=== PATIENT | female | born 1995 | race Caucasian/White ===

== ENCOUNTER 2019-11-22 00:39 | Emergency (ER) | payer MEDICAID, OTHER ==
[~2019-11-22] VITALS: Ht 160 cm; Wt 122.5 kg
--- NOTE | 2019-11-22 00:50 | NUR ---
PT CAME TO THE ED C/O FLU LIKE SYMPTOMS, COUGH, TESTED COVID X3 NEGATIVE. +DIARRHEA, +H/A. PT AAOX4, VSS, RESPIRATIONS EVEN AND UNLABORED ON RA W/ NAD NOTED. PT CONNECTED TO THE MONITOR AND POX
[2019-11-22] MEDS ORDERED: ACETAMINOPHEN ES 500 MG TABLET ONE (01:10)
[2019-11-22] MEDS ORDERED: diphenhydrAMINE HCL 50 MG/ML VIAL ONE (01:10)
[2019-11-22] MEDS ORDERED: METOCLOPRAMIDE HCL 10 MG/2 ML VIAL ONE (01:10)
[2019-11-22] MEDS ORDERED: KETOROLAC TROMETHAMINE 15 MG/ML VIAL ONE (01:10)
[2019-11-22 01:25] LABS: BASOPHILS # (AUTO) 0.1 /CMM (0.0-0.2); BASOPHILS % (AUTO) 0.7 % (0.0-2.0); EOSINOPHILS % (AUTO) 8.9 % (0.0-6.0); HEMATOCRIT 45 % (33-45); HEMOGLOBIN 15.2 g/dL (11.5-14.8); LYMPHOCYTES # (AUTO) 2.1 /CMM (0.8-4.8); LYMPHOCYTES % (AUTO) 20.7 % (20.0-44.0); MEAN CORPUSCULAR HGB CONC 34 g/dl (31.0-36.0); MEAN CORPUSCULAR VOLUME 92 fL (82-100); MONOCYTES # (AUTO) 0.5 /CMM (0.1-1.30); MONOCYTES % (AUTO) 5.4 % (2.0-12.0); NEUTROPHILS # (AUTO) 6.5 /CMM (1.8-8.9); NEUTROPHILS % (AUTO) 64.3 % (43.0-81.0); PLATELET COUNT (AUTO) 197 /CMM (150-450); RED BLOOD CELL COUNT(AUTO) 4.82 MIL/uL (4.0-5.2)
[2019-11-22 01:29] LABS: CALCIUM, SERUM 8.8 mg/dL (8.5-10.1); CREATININE 0.8 mg/dL (0.6-1.3); POTASSIUM 3.7 mmol/L (3.5-5.1)
[2019-11-22] MEDS: KETOROLAC TROMETHAMINE INJ 30 MG/ML VIAL IV ONE (01:30)
[2019-11-22] MEDS: IV NS 0.9% 1,000 ML BAG IV ONE (01:31)
[2019-11-22] MEDS: diphenhydrAMINE HCL 50 MG/ML VIAL IV ONE (01:31)
[2019-11-22] MEDS: ACETAMINOPHEN ES 500 MG TABLET PO ONE (01:31)
[2019-11-22] MEDS: METOCLOPRAMIDE HCL 10 MG/2 ML VIAL IV ONE (01:31)
[2019-11-22 01:35] LABS: ALBUMIN 3.5 g/dL (3.4-5.0); BILIRUBIN,DIRECT 0.1 mg/dL (0.0-0.2); BILIRUBIN,TOTAL 0.4 mg/dL (0.2-1.0); TOTAL PROTEIN, SERUM 7.3 g/dL (6.4-8.2)
[2019-11-22 03:14] VITALS: BP 128/84
--- NOTE | 2019-11-23 22:57 | NUR ---
RECEIVED CALL FROM LAB REGARDING COVID TEST. PT NEGATIVE.
== END 2019-11-22 03:15 | disposition home or self-care (01) ==
LOC: ER 00:42
DX: G43.909 Migraine, unspecified, not intractable, without status migrainosus (principal); M79.10 Myalgia, unspecified site; R05 Cough; Z20.828 Contact with and (suspected) exposure to other viral communicable diseases; R19.7 Diarrhea, unspecified
CPT/HCPCS: 36415; 80048; 80076; 84703; 85025; 96361; 96374; 96375; 99284; C9803; J1200; J1885; J2765; J7030; J7060; U0003

== ENCOUNTER 2021-02-28 21:21 | Emergency (ER) | payer OTHER ==
[~2021-02-28] VITALS: Ht 160 cm; Wt 124.7 kg
[2021-02-28] MEDS ORDERED: FENTANYL PF 100MCG/2ML AMPUL IV ONE (22:00)
[2021-02-28] MEDS ORDERED: FENTANYL PF 100MCG/2ML AMPUL ONE (22:01)
--- NOTE | 2021-02-28 22:34 | NUR ---
[facility] ([facility]) [phone]
[2021-02-28 22:38] LABS: HEMOGLOBIN 14.9 g/dL (11.5-14.8)
[2021-02-28 22:42] LABS: BASOPHILS # (AUTO) 0.1 K/uL (0.0-0.2); BASOPHILS % (AUTO) 0.5 % (0.0-2.0); EOSINOPHILS % (AUTO) 1.5 % (0.0-6.0); HEMATOCRIT 44 % (33-45); LYMPHOCYTES % (AUTO) 11.3 % (20.0-44.0); MEAN CORPUSCULAR HGB CONC 34 g/dl (31.0-36.0); MEAN CORPUSCULAR VOLUME 92 fL (82-100); MONOCYTES % (AUTO) 5.5 % (2.0-12.0); NEUTROPHILS # (AUTO) 14.5 K/uL (1.8-8.9); NEUTROPHILS % (AUTO) 81.2 % (43.0-81.0); PLATELET COUNT (AUTO) 295 K/uL (150-450); RED BLOOD CELL COUNT(AUTO) 4.76 MIL/uL (4.0-5.2); WHITE BLOOD COUNT (AUTO) 17.8 K/uL (4.3-11.0)
[2021-02-28 22:47] LABS: CALCIUM, SERUM 8.3 mg/dL (8.5-10.1); CARBON DIOXIDE 22 mmol/L (21-32); CHLORIDE 105 mmol/L (98-107); GLUCOSE 143 mg/dL (74-106); POTASSIUM 3.6 mmol/L (3.5-5.1); SODIUM SERUM 140 mmol/L (136-145); UREA NITROGEN, BLOOD 11 mg/dL (7-18)
[2021-02-28 22:53] LABS: ALANINE AMINOTRANSFERASE 49 U/L (12-78); ALBUMIN 3.7 g/dL (3.4-5.0); ALCOHOL, BLOOD < 3 mg/dL (0-0); ALKALINE PHOSPHATASE 94 U/L (46-116); ASPARTATE AMINOTRANSFERASE 31 U/L (15-37); BILIRUBIN,DIRECT 0.1 mg/dL (0.0-0.2); BILIRUBIN,TOTAL 0.2 mg/dL (0.2-1.0); TOTAL PROTEIN, SERUM 7.5 g/dL (6.4-8.2)
[2021-02-28] MEDS ORDERED: IV NS 0.9% 250 ML IV ONE (22:56)
[2021-02-28] MEDS ORDERED: IOHEXOL-300 100 ML VIAL IV ONE (22:56)
[2021-02-28] MEDS ORDERED: CT SWABBABLE VALVE TRANS SET 1 EA INFUS.SET MC ONE (22:56)
[2021-02-28 22:58] LABS: BILIRUBIN,URINE SMALL (NEGATIVE); LEUKOCYTE ESTERASE ,URINE Negative (NEGATIVE); NITRITE, URINE Negative (NEGATIVE); PH,URINE 5.5 (5.0-8.0); PROTEIN,URINE 100 mg/dl (NEGATIVE); UGLUCOSE Negative (NEGATIVE); UROBILINOGEN,URINE 0.2 EU/dL (0.2)
[2021-02-28 23:01] LABS: COLOR,URINE YELLOW (YELLOW)
[2021-02-28 23:15] LABS: BACTERIA,URINE None seen /HPF (None Seen); RBC,URINE 0-2 /HPF (0-2); SQUAMOUS EPITHELIAL CELL,UR Moderate /HPF (None Seen); WBC,URINE 0-2 /HPF (0-3)
[2021-02-28 23:16] LABS: HYALINE CASTS, URINE Few /LPF (None Seen); MUCUS,URINE Many /LPF (None Seen)
[2021-02-28] MEDS ORDERED: MORPHINE SULFATE INJ 2 MG/ML DISP.SYRIN ONE (23:21)
[2021-02-28] MEDS ORDERED: MORPHINE SULFATE INJ 2 MG/ML DISP.SYRIN IV ONE (23:30)
[2021-02-28] MEDS ORDERED: CYCL10TA9 PO (23:44)
[2021-02-28] MEDS ORDERED: IBUP-1955 PO (23:44)
--- NOTE | 2021-03-01 00:45 | NUR ---
COVID SWAB COLLECTED AND SENT TO LAB
--- NOTE | 2021-03-01 02:15 | NUR ---
AUTH NO FOR AMBULANCE TRANSPO: [id number]
--- NOTE | 2021-03-01 02:18 | NUR ---
PER ART, [facility], PT IS ACCEPTED AT [facility]. ROOM NUMBER AND # FOR REPORTED TO BE PROVIDED
[2021-03-01] MEDS ORDERED: ONDANSETRON HCL/PF 4 MG/2 ML VIAL ONE (02:24)
[2021-03-01] MEDS ORDERED: MORPHINE SULFATE INJ 2 MG/ML DISP.SYRIN ONE (02:24)
--- NOTE | 2021-03-01 02:29 | NUR ---
RESERVED [facility] WILL CALL FOR BLS TRANSPO
[2021-03-01] MEDS ORDERED: ONDANSETRON HCL/PF 4 MG/2 ML VIAL IV ONE (02:30)
[2021-03-01] MEDS ORDERED: MORPHINE SULFATE INJ 2 MG/ML DISP.SYRIN IV ONE ×2 (02:30→04:30)
--- NOTE | 2021-03-01 03:53 | NUR ---
[facility] 503 call report [phone]
--- NOTE | 2021-03-01 03:55 | NUR ---
[facility] ETA: 10-15 MIN
[2021-03-01] MEDS ORDERED: MORPHINE SULFATE INJ 4 MG/ML DISP.SYRIN ONE (04:08)
--- NOTE | 2021-03-01 04:17 | NUR ---
REPORT GIVEN TO IONA Pedraza RN) AT [facility].
[2021-03-01 04:22] VITALS: BP 135/85
--- NOTE | 2021-03-01 04:27 | NUR ---
PT TRANSFEERED TO [facility] IN STABLE CONDITION.
--- NOTE | 2021-03-01 04:28 | NUR ---
PT'S FATHER MADE AWARE OF TRANSFER
== END 2021-03-01 04:28 | disposition short-term general hospital (02) ==
LOC: ER 21:33
DX: S32.401A Unspecified fracture of right acetabulum, initial encounter for closed fracture (principal); S22.41XA Multiple fractures of ribs, right side, initial encounter for closed fracture; V40.5XXA Car driver injured in collision with pedestrian or animal in traffic accident, initial encounter; Y92.411 Interstate highway as the place of occurrence of the external cause; K42.9 Umbilical hernia without obstruction or gangrene; D72.829 Elevated white blood cell count, unspecified; S09.90XA Unspecified injury of head, initial encounter; M54.2 Cervicalgia; Z20.822 Contact with and (suspected) exposure to COVID-19
CPT/HCPCS: 36415; 70450; 71260; 72125; 73502; 74177; 80048; 80076; 80307; 80320; 81001; 84703; 85025; 85730; 87086; 87426; 96374; 96375 ×2; 96376; 99285; C9803; J2270 ×3; J2405; J3010; J7050; Q9967; G0480